=== PATIENT | female | born 1940 | race Caucasian/White ===

== ENCOUNTER 2024-06-19 09:26 | Inpatient (IN) | payer MEDICARE, BC ==
[~2024-06-19] VITALS: Ht 165.1 cm; Wt 86.3 kg
[2024-06-19] VITALS (13 sets, daily range): BP systolic 108–149; BP diastolic 60–82; PULSE 65–92; TEMP 97.4–97.8
[~2024-06-19 09:26] MED LIST: Acetaminophen 500 MG TAB PO SCH; Gabapentin 100 MG CAP PO SCH; LR 1,000 ML IV SCH; ceFAZolin 1 G in Water For Injection,Sterile 10 ML IV ONE
[2024-06-19] MEDS ORDERED: HCTZ 25MG TAB25 MG PO (10:09)
[2024-06-19] MEDS ORDERED: ROXICODONE 55 MG/TAB PO (10:39)
[2024-06-19] MEDS ORDERED: Midazolam 2 MG/2 ML VIAL ONE (10:51)
[2024-06-19] MEDS ORDERED: Lidocaine PF 2% (20 MG/ML) 5 ML VIAL ONE (10:51)
[2024-06-19] MEDS ORDERED: Ondansetron 4 MG/2 ML VIAL ONE (10:51)
[2024-06-19] MEDS ORDERED: Rocuronium 50 MG/5 ML Multi-Dose VIAL ONE (10:51)
[2024-06-19] MEDS ORDERED: NS 100 ML IV ONE (10:51)
[2024-06-19] MEDS ORDERED: fentaNYL 50 MCG/ML 2 ML VIAL ONE (10:51)
[2024-06-19 11:27] LABS: CALCIUM 9.7 mg/dL (8.4-10.2); POTASSIUM 3.6 mEq/L (3.5-4.5)
[2024-06-19] MEDS ORDERED: REQUIP 1MG T1 MG/TAB PO (11:30)
[2024-06-19] MEDS ORDERED: K-TAB20 PO (11:31)
[2024-06-19] MEDS ORDERED: Ondansetron 4 MG/2 ML VIAL IV PRN ×2 (12:15→13:15)
[2024-06-19] MEDS ORDERED: oxyCODONE 5 MG TAB PO PRN ×2 (12:15)
[2024-06-19] MEDS ORDERED: Naloxone 0.4 MG/ML VIAL IV PRN (12:15)
[2024-06-19] MEDS ORDERED: 1/2 NS 1,000 ML IV SCH (12:15)
[2024-06-19] MEDS ORDERED: Morphine 4 MG/ML VIAL IV PRN (12:15)
[2024-06-19] MEDS ORDERED: ePHEDrine 50 MG/ML VIAL ONE (12:32)
[2024-06-19] MEDS ORDERED: Topical Skin Adhesive 1 EACH (1 ML) TOP ONE (12:34)
[2024-06-19] MEDS ORDERED: hydrALAZINE 20 MG/ML 1 ML VIAL IV PRN (13:15)
[2024-06-19] MEDS ORDERED: fentaNYL 50 MCG/ML 1 ML SYRINGE/VIAL [PACU/SDC ONLY] IV PRN (13:15)
[2024-06-19] MEDS ORDERED: HYDROmorphone 1 MG/1 ML SYRINGE [PACU/SDC ONLY] IV PRN (13:15)
[2024-06-19] MEDS ORDERED: Morphine 2 MG/1 ML VIAL [PACU/SDC ONLY] IV PRN (13:15)
[2024-06-19] MEDS ORDERED: ceFAZolin 1 G in Water For Injection,Sterile 10 ML IV SCH (16:00)
--- NOTE | 2024-06-19 16:50 | NUR ---
PATIENT ARRIVED POST OP WITH NAUSEA, NON PRODUCTIVE, AND SHALLOW COUGH. PATIENT IS RESPONSIVE, REPORTS PAIN TO THE LEFT SIDE. HEAD TO TOE ASSESSMENT COMPLETED. PAIN MEDS PROVIDED. POST OP VITALS MONITORED. PATIENT AT REST, BED AT LOWEST POSITION, CALL LIGHT IN REACH AND FAMILY AT BED SIDE.
[2024-06-19] MEDS ORDERED: Acetaminophen 500 MG TAB PO SCH (17:00)
[2024-06-19] MEDS ORDERED: rOPINIRole 1 MG TAB PO SCH (21:00)
[2024-06-19] MEDS ORDERED: Sennosides/Docusate 8.6-50 MG TAB PO SCH (21:00)
--- NOTE | 2024-06-19 22:22 | NUR ---
Patient assessed around 2019. Alert and oriented, and able to make needs known. Reported pain better, rated as a 3. Denied needing pain medication at that time. Complaining of nausea, had small amount of clear emesis. Given PRN Zofran. Peripheral IV to left AC with IV fluids runnign per orders. Denies SOB and dyspnea. put back on room air. LS CTA. HRR. BSAx4. Lab sites to abdomen open to air, no drainage. RADHA drain to LLQ with bloody output. Patient voices no further questions, needs, or concerns at this time. In bed with call light within reach. High fall risk precautions in place. Bed alarm on.
[2024-06-20] VITALS (11 sets, daily range): BP systolic 103–123; BP diastolic 45–72; PULSE 65–77; TEMP 96.5–98.5
--- NOTE | 2024-06-20 06:27 | NUR ---
Patient not tolerating clears during the night. Given PRN Zofran for nausea. Also given PRN Morphine for pain as requested. Continues on IV fluids per orders. Voices no further questions, needs, or concerns at this time. In bed with call light within reach. Bed alarm on.
[2024-06-20 07:06] LABS: HEMOGLOBIN 12.7 g/dl (12.5-16.0)
[2024-06-20 07:43] LABS: CREATININE, serum 0.97 mg/dL (0.57-1.11); POTASSIUM 4.3 mEq/L (3.5-4.5)
[2024-06-20] MEDS ORDERED: hydroCHLOROthiazide 25 MG TAB PO SCH (09:00)
--- NOTE | 2024-06-20 09:06 | NUR ---
Patient awake, alert and oriented. C/O pain to left side near RADHA drain and nausea, only tolerating small amounts of clear liquids. Multiple bruises to body and skin tear to right arm from fall at home. Fall precautions in place, bed in lowest position with call light within reach. Daughter at the bedside.
--- NOTE | 2024-06-20 15:37 | NUR ---
Social work student and social work Jackelyn met with Pt his afternoon. Pt's , Tato (p# [phone]), daughter Michelle (p# [phone]), and niece were at bedside. Pt lives in [place] with her , Tato. Pt's PCP is Tracy and uses [facility] primary pharmacy. Pt's reports having a walker and cane at home and uses them when needed. SIRI asked about a DPOA and PT and family were confident they had one but stated it "." SIRI informed Pt that PT/OT is recommending SNIF before going home. SIRI left resources with family of SWING and SNIF in [place]. SW, Pt, and family discussed options and Pt agreed to [place] [facility]. SIRI Hayden sent referral to [place] [facility]. Discharge plan: [place] [facility] if approved
--- NOTE | 2024-06-20 18:09 | NUR ---
Pt tolerating full liquids well, denies nausea. Pain has improved greatly this afternoon after having RADHA drain pulled.
--- NOTE | 2024-06-20 23:07 | NUR ---
Patient assessed around 2100. Alert and oriented, and able to make needs known. Denied having pain and nausea at that time. Stated she was feeling much better compared to last night, but was ready to try and get some sleep tonight. Stated she did not want to be woken for scheduled Acetaminophen during the night. Peripheral IV to left AC with IV fluids running per orders. Denies SOB and dyspnea. LS CTA. HRR. BSAx4. Passing gas. Lap sites to abdomen without drainage. Has been ambulating to the bathroom with one assist. Voices no further questions, needs, or concerns at this time. In bed with call light within reach. High fall risk precautions in place. Bed alarm on.
[2024-06-21] VITALS (10 sets, daily range): BP systolic 114–126; BP diastolic 54–72; PULSE 60–83; TEMP 97.4–99.1
--- NOTE | 2024-06-21 06:35 | NUR ---
Patient has denied nausea this shift. Scheduled Acetaminophen was effective for pain management during the night, no PRN medications needed. Continues on IV fluids per orders. Voices no questions, needs, or concerns at this time. In bed with call light within reach. High fall risk precautions in place. Bed alarm on.
--- NOTE | 2024-06-21 08:05 | NUR ---
PATIENT ALERT AND ORIENTED X4. VSS. PATIENT HERE FOR FABIANO PARTIAL NEPHRECTOMY. LAPS X5 CDI WITH SKIN GLUE. OLD RADHA SITE CDI WITH GAUZE/TEGADERM. IV TO INT IN LEFT WRIST. PATIENT REPORTS PAIN IN LOWER BACK, RATING 7/10, REQUESTS PRN PAIN MEDICATION. DIET ADVANCED, WILL ORDER BREAKFAST. NO FURTHER NEEDS. CALL LIGHT IN REACH. BED ALARM ON.
[2024-06-21 09:17] LABS: BASO # 0.1 K/mm3 (0.0-0.2); BASO % 0.5 % (0.0-2.0); EOS # 0.1 K/mm3 (0.0-0.7); EOS % 0.5 % (0.0-4.0); GRAN # 7.7 K/mm3 (1.4-6.5); GRAN % 70.4 % (42.2-75.2); HEMATOCRIT 37.1 % (37.0-47.0); HEMOGLOBIN 12.5 g/dl (12.5-16.0); LYMPH # 2.3 K/mm3 (1.2-3.4); LYMPH % 21.1 % (20.0-51.0); MEAN CELL VOLUME 94 fl (80.0-100.0); MEAN CORPUSCULAR HEMOGLOBIN 32 pg (27-31); MEAN CORPUSCULAR HGB CONC 34 g/dl (33.0-37.0); MEAN PLATELET VOLUME 10.1 fl (7.4-10.4); MONO # 0.8 K/mm3 (0.1-0.6); MONO % 7.1 % (1.7-9.3); PLATELET COUNT 198 K/mm3 (130-400); RED BLOOD COUNT 3.96 M/mm3 (4.10-5.30)
[2024-06-21 09:40] LABS: ALBUMIN 3.2 g/dL (3.4-4.8); CALCIUM 9.1 mg/dL (8.4-10.2); CREATININE, serum 0.96 mg/dL (0.57-1.11); POTASSIUM 3.8 mEq/L (3.5-4.5); TOTAL PROTEIN 6.4 g/dl (6.2-8.1)
[2024-06-21] MEDS ORDERED: Ketorolac 15 MG/ML VIAL IV PRN (11:15)
[2024-06-21] MEDS ORDERED: Ketorolac 15 MG/ML VIAL IV SCH (11:30)
--- NOTE | 2024-06-21 15:09 | NUR ---
Initial visit; Patient and her daughter thanked Apartment Maintenance Supervisor for looking in on her and inquiring how she is doing and letting her know of the availability of [facility] at [facility]. Inesha states she has had little sleep due to a worse back ache than usual. will hopefully address this along with her other health issues. Apartment Maintenance Supervisor wished her well, let her know to contact Apartment Maintenance Supervisor through her nurses and will keep her in Apartment Maintenance Supervisor's prayers.
--- NOTE | 2024-06-21 15:43 | NUR ---
Manager Of Sales, Jackelyn faxed clinical updates to [facility]. SIRI contacted Elyssa at [facility] who reviewed case with patient's primary care provider and they questioned if patient would really need a rehab stay. SIRI referred to PT's note where patient only walked 3-35 feet over the last couple of days. SIRI also spoke with RN about ordering OT. Elyssa requested more updates in the morning and will update provider on PT notes.
[2024-06-21] MEDS ORDERED: oxyCODONE 5 MG TAB PO PRN (19:00)
[2024-06-22] VITALS (7 sets, daily range): BP systolic 102–119; BP diastolic 57–73; PULSE 65–70; TEMP 97.6–98.7
--- NOTE | 2024-06-22 00:31 | NUR ---
Patient assessed around 2024. Complained of pain to back. Given PRN Roxicodone. Reports pain is doing better now, given scheduled APAP and Toradol. Voices no further questions, needs, or concerns at this time. In bed with call light within reach. High fall risk precautions in place. Bed alarm on.
--- NOTE | 2024-06-22 06:32 | NUR ---
Patient received scheduled pain medication per orders this shift, as well as PRN Roxicodone twice this shift. PRN Zofran given once for nausea. Reports pain is much better this morning compared to last night. Voices no further questions, needs, or concerns at this time. In bed with call light within reach. High fall risk precautions in place. Bed alarm on.
--- NOTE | 2024-06-22 09:28 | NUR ---
PATIENT ALERT AND ORIENTED X4. VSS WITH THE EXCEPTION OF BP BEING ON THE SOFT SIDE, HELD HCTZ THIS AM. PATIENT REPORTS PAIN 5/10, REQUESTS PRN PAIN MEDS. AM MED ADMINISTERED. NO FURTHER NEEDS. CALL LIGHT IN REACH.
[2024-06-22] MEDS ORDERED: DAZIDOX10 MG PO (11:23)
--- NOTE | 2024-06-22 12:12 | NUR ---
DISCHARGE INSTRUCTIONS PROVIDED. PATIENT EDUCATION GIVEN. IV DC'D. FOLLOW UP APPOINTMENT DISCUSSED. MEDICATIONS REVIEWED. PATIENT DENIES ANY QUESTIONS OR CONCERNS.
--- NOTE | 2024-06-22 13:45 | NUR ---
PATIENT ESCORTED OUT VIA WHEELCHAIR WITH BELONGINGS
--- NOTE | 2024-06-22 15:16 | NUR ---
Barber Instructor heard back from Elyssa at [facility] who advised they would not be able to consider patient until Tuesday. SIRI was then approached by Dr. Vergara who spoke with patient's PCP about possibly going home with HH as she had been improving. SIRI met with patient and her daughter, Michelle at bedside. Michelle plans to take time off work to provide extra support to patient and they both felt comfortable with the plan to return home with services. Patient stated she has used [facility] in the past and would like to use them again. SIRI contacted Art at [facility] and faxed referral with discharge orders. Discharge Plan: Home with [facility]
== END 2024-06-22 13:45 | disposition home health service (06) | DRG 661 ==
LOC: SDCO 09:26 → SURG 16:43 → SDCO 06-20 11:25 → SURG 06-22 13:45
PROVIDERS: Nurse Anesthetist, Certified Registered; ADMIT Urology
PROC: 8E0W4CZ Robotic Assisted Procedure of Trunk Region, Percutaneous Endoscopic Approach (ICD-10-PCS; 2024-06-19)
PROC: 0TB14ZZ Excision of Left Kidney, Percutaneous Endoscopic Approach (ICD-10-PCS; principal; 2024-06-19 11:30)
DX: N28.89 Other specified disorders of kidney and ureter (principal); Z88.0 Allergy status to penicillin; Z88.8 Allergy status to other drugs, medicaments and biological substances
CPT/HCPCS: OP; A4314; A9284; J0690; J1171; J1885; J1956; J2250; J2270; J2405; J2704; J2795; J3010; J7120